=== PATIENT | male | born 1970 | race Caucasian/White ===

== ENCOUNTER 2017-02-09 16:43 | Emergency (ER) | payer OTHER ==
[2017-02-09] MEDS ORDERED: Lidocaine/Prilocaine 2.5-2.5% Crm 5 GM Tube TOP ONE (16:53)
[2017-02-09 17:18] VITALS: BP 120/80
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
[2017-02-09] MEDS ORDERED: Naproxen 500 MG Tab PO ONE (17:37)
[2017-02-09] MEDS ORDERED: Bacitracin/Neomycin/Polymyxin B Oint 0.9 GM U/D Packet TOP ONE (17:38)
== END 2017-02-09 18:02 | disposition home or self-care (01) ==
LOC: LL.ED 16:43
DX: S01.01XA Laceration without foreign body of scalp, initial encounter (principal); W22.8XXA Striking against or struck by other objects, initial encounter; I10 Essential (primary) hypertension
CPT/HCPCS: 12002; 99282; A9270